=== PATIENT | male | born 1965 | race Caucasian/White ===

== ENCOUNTER 2018-02-08 12:04 | Emergency (ER) | payer BC ==
[2018-02-08 12:36] VITALS: RESP 18
--- NOTE | 2018-02-08 13:53 | ED ---
General Adult HPI - General Chief complaint: Extremity Problem,Nontraumatic Stated complaint: Hip Pain Time Seen by Provider: 02/08/18 13:09 Source: patient, RN notes reviewed, old records reviewed Mode of arrival: ambulatory Limitations: no limitations - History of Present Illness Initial comments: This is a 52-year-old male the ER for evaluation. Patient was essay for evaluation regards to leg pain. Severe left hip pain. Patient had prior x- rays for hip after fall. X-rays were negative. Patient continues to have severe hip pain. No other new injury or trauma no neurological deficit no loss of bowel or bladder - Related Data Previous Rx's Medication Instructions Recorded Ondansetron Odt [Zofran ODT] 4 mg PO Q8HR PRN #30 tab 02/08/18 diphenhydrAMINE [Benadryl] 25 mg PO TID #30 capsule 02/08/18 diphenhydrAMINE [Benadryl] 50 mg PO QID PRN #20 capsule 02/08/18 Allergies Allergy/AdvReac Type Severity Reaction Status Date / Time No Known Allergies Allergy Verified 02/08/18 12:36 Review of Systems ROS Statement: Those systems with pertinent positive or pertinent negative responses have been documented in the HPI. ROS Other: All systems not noted in ROS Statement are negative. 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 History of Any Multi-Drug Resistant Organisms: None Reported Past Surgical History: No Surgical Hx Reported Additional Past Surgical History / Comment(s): throat cancer Past Anesthesia/Blood Transfusion Reactions: Unable to Obtain Additional Past Anesthesia/Blood Transfusion Reaction / Comment(s): Pt states he has never had any surgeries. Past Psychological History: No Psychological Hx Reported Smoking Status: Current every day smoker Past Alcohol Use History: None Reported Past Drug Use History: None Reported - Past Family History Father Family Medical History: Cancer Additional Family Medical History / Comment(s): Father from bone cancer at the age of 52yrs. Mother Additional Family Medical History / Comment(s): Mother has back problems. General Exam Limitations: no limitations General appearance: alert, in no apparent distress Head exam: Present: atraumatic, normocephalic, normal inspection Eye exam: Present: normal appearance, PERRL, EOMI. Absent: scleral icterus, conjunctival injection, periorbital swelling ENT exam: Present: normal exam, mucous membranes moist Neck exam: Present: normal inspection. Absent: tenderness, meningismus, lymphadenopathy Respiratory exam: Present: normal lung sounds bilaterally. Absent: respiratory distress, wheezes, rales, rhonchi, stridor Cardiovascular Exam: Present: regular rate, normal rhythm, normal heart sounds. Absent: systolic murmur, diastolic murmur, rubs, gallop, clicks GI/Abdominal exam: Present: soft, normal bowel sounds. Absent: distended, tenderness, guarding, rebound, rigid Extremities exam: Present: normal inspection, full ROM, normal capillary refill. Absent: tenderness, pedal edema, joint swelling, calf tenderness Back exam: Present: normal inspection Neurological exam: Present: alert, oriented X3, CN II-XII intact Psychiatric exam: Present: normal affect, normal mood Skin exam: Present: warm, dry, intact, normal color. Absent: rash Course Vital Signs 02/08/18 02/08/18 12:33 14:32 Temperature 98.3 F Pulse Rate 96 67 Respiratory 18 18 Rate Blood Pressure 114/75 113/59 O2 Sat by Pulse 97 95 Oximetry EKG Findings - EKG Comments: EKG Findings:: EKG shows sinus rhythm rate of 67, DE 142, QRS 86, QTc 407 Medical Decision Making - Medical Decision Making 52 male the ER for evaluation presents to ER for evaluation regarding hip pain left hip pain. Patient is multiple imaging tests, abdomen abdomen tests. PAtient is in no distress and can be discharged home - Lab Data Result diagrams: 02/08/18 14:30 02/08/18 14:30 Lab Results 02/08/18 02/08/18 02/08/18 Range/Units 14:30 14:30 14:30 WBC 12.6 H (3.8-10.6) k/uL RBC 5.58 (4.30-5.90) m/uL Hgb 16.6 (13.0-17.5) gm/dL Hct 49.3 (39.0-53.0) % MCV 88.3 (80.0-100.0) fL MCH 29.7 (25.0-35.0) pg MCHC 33.6 (31.0-37.0) g/dL RDW 13.2 (11.5-15.5) % Plt Count 301 (150-450) k/uL Neutrophils % 78 % Lymphocytes % 12 % Monocytes % 7 % Eosinophils % 1 % Basophils % 0 % Neutrophils # 9.8 H (1.3-7.7) k/uL Lymphocytes # 1.6 (1.0-4.8) k/uL Monocytes # 0.8 (0-1.0) k/uL Eosinophils # 0.2 (0-0.7) k/uL Basophils # 0.1 (0-0.2) k/uL PT (9.0-12.0) sec INR (<1.2) APTT (22.0-30.0) sec D-Dimer (<0.60) mg/L FEU Sodium 140 (137-145) mmol/L Potassium 4.2 (3.5-5.1) mmol/L Chloride 109 H (98-107) mmol/L Carbon Dioxide 23 (22-30) mmol/L Anion Gap 8 mmol/L BUN 23 H (9-20) mg/dL Creatinine 0.70 (0.66-1.25) mg/dL Est GFR (CKD-EPI)AfAm >90 (>60 ml/min/1.73 sqM) Est GFR (CKD-EPI)NonAf >90 (>60 ml/min/1.73 sqM) Glucose 114 H (74-99) mg/dL Plasma Lactic Acid Austin (0.7-2.0) mmol/L Calcium 9.9 (8.4-10.2) mg/dL Phosphorus 3.0 (2.5-4.5) mg/dL Magnesium 2.0 (1.6-2.3) mg/dL Total Bilirubin 0.6 (0.2-1.3) mg/dL AST 18 (17-59) U/L ALT 24 (21-72) U/L Alkaline Phosphatase 86 (38-126) U/L Total Creatine Kinase 60 (55-170) U/L CK-MB (CK-2) 0.5 (0.0-2.4) ng/mL CK-MB (CK-2) Rel Index 0.8 Troponin I <0.012 (0.000-0.034) ng/mL Total Protein 7.1 (6.3-8.2) g/dL Albumin 4.3 (3.5-5.0) g/dL TSH 0.733 (0.465-4.680) mIU/L 02/08/18 02/08/18 Range/Units 14:30 14:30 WBC (3.8-10.6) k/uL RBC (4.30-5.90) m/uL Hgb (13.0-17.5) gm/dL Hct (39.0-53.0) % MCV (80.0-100.0) fL MCH (25.0-35.0) pg MCHC (31.0-37.0) g/dL RDW (11.5-15.5) % Plt Count (150-450) k/uL Neutrophils % % Lymphocytes % % Monocytes % % Eosinophils % % Basophils % % Neutrophils # (1.3-7.7) k/uL Lymphocytes # (1.0-4.8) k/uL Monocytes # (0-1.0) k/uL Eosinophils # (0-0.7) k/uL Basophils # (0-0.2) k/uL PT 11.1 (9.0-12.0) sec INR 1.2 H (<1.2) APTT 23.1 (22.0-30.0) sec D-Dimer 0.40 (<0.60) mg/L FEU Sodium (137-145) mmol/L Potassium (3.5-5.1) mmol/L Chloride (98-107) mmol/L Carbon Dioxide (22-30) mmol/L Anion Gap mmol/L BUN (9-20) mg/dL Creatinine (0.66-1.25) mg/dL Est GFR (CKD-EPI)AfAm (>60 ml/min/1.73 sqM) Est GFR (CKD-EPI)NonAf (>60 ml/min/1.73 sqM) Glucose (74-99) mg/dL Plasma Lactic Acid Austin 1.2 (0.7-2.0) mmol/L Calcium (8.4-10.2) mg/dL Phosphorus (2.5-4.5) mg/dL Magnesium (1.6-2.3) mg/dL Total Bilirubin (0.2-1.3) mg/dL AST (17-59) U/L ALT (21-72) U/L Alkaline Phosphatase (38-126) U/L Total Creatine Kinase (55-170) U/L CK-MB (CK-2) (0.0-2.4) ng/mL CK-MB (CK-2) Rel Index Troponin I (0.000-0.034) ng/mL Total Protein (6.3-8.2) g/dL Albumin (3.5-5.0) g/dL TSH (0.465-4.680) mIU/L Disposition Clinical Impression: Left hip pain Disposition: HOME SELF-CARE Condition: Good Instructions: Hip Pain (ED) Prescriptions: diphenhydrAMINE [Benadryl] 50 mg PO QID PRN #20 capsule PRN Reason: itching/rash diphenhydrAMINE [Benadryl] 25 mg PO TID #30 capsule Ondansetron Odt [Zofran ODT] 4 mg PO Q8HR PRN #30 tab PRN Reason: nausea/vomiting Is patient prescribed a controlled substance at d/c from ED?: No Referrals: Gus Ruby MD [Primary Care Provider] - 1-2 days
--- NOTE | 2018-02-08 13:57 | CT ---
EXAMINATION TYPE: CT hip LT wo con DATE OF EXAM: 02/08/2018 COMPARISON: None. HISTORY: Severe Lt hip pain, no injury CT DLP: 342.7 mGycm Automated exposure control for dose reduction was used. FINDINGS: Soft tissue views are unremarkable. There is no osseous lesion including fracture, dislocation and other osseous lesions. There is minima l degenerative change in the hip. IMPRESSION: 1. NO ACUTE OSSEOUS LESION. 2. MINIMAL DEGENERATIVE CHANGE.
[2018-02-08] MEDS ORDERED: MORPHINE SULFATE 4 MG/ML SYRINGE IV STA (14:02)
[2018-02-08] MEDS ORDERED: SODIUM CHLORIDE 0.9% 1,000 ML IV STA (14:02)
[2018-02-08] MEDS ORDERED: ONDANSETRON 4 MG/2 ML VIAL IVP STA (14:02)
[2018-02-08 14:55] LABS: Basophils # (A) 0.1 k/uL (0-0.2); Basophils % (A) 0 %; Eosinophils # (A) 0.2 k/uL (0-0.7); Eosinophils % (A) 1 %; HCT 49.3 % (39.0-53.0); HGB 16.6 gm/dL (13.0-17.5); Lymphocytes # (A) 1.6 k/uL (1.0-4.8); Lymphocytes % (A) 12 %; MCH 29.7 pg (25.0-35.0); MCHC 33.6 g/dL (31.0-37.0); MCV 88.3 fL (80.0-100.0); Mean Platelet Volume 7.1; Monocytes # (A) 0.8 k/uL (0-1.0); Monocytes % (A) 7 %; Neutrophils # (A) 9.8 k/uL (1.3-7.7); Neutrophils % (A) 78 %; Platelet Count 301 k/uL (150-450); RBC 5.58 m/uL (4.30-5.90); RDW 13.2 % (11.5-15.5); WBC 12.6 k/uL (3.8-10.6)
[2018-02-08] MEDS ORDERED: MORPHINE SULFATE 4 MG/ML SYRINGE IVP STA (15:10)
[2018-02-08 15:12] LABS: ALT 24 U/L (21-72); AST 18 U/L (17-59); Albumin 4.3 g/dL (3.5-5.0); Alkaline Phosphatase 86 U/L (38-126); Anion Gap 8 mmol/L; Blood Urea Nitrogen 23 mg/dL (9-20); Calcium 9.9 mg/dL (8.4-10.2); Carbon Dioxide 23 mmol/L (22-30); Chloride 109 mmol/L (98-107); Glucose 114 mg/dL (74-99); Potassium 4.2 mmol/L (3.5-5.1); Sodium 140 mmol/L (137-145); Total Bilirubin 0.6 mg/dL (0.2-1.3); Total Protein 7.1 g/dL (6.3-8.2)
[2018-02-08 15:16] LABS: D-Dimer 0.4 mg/L FEU (<0.60); INR 1.2 (<1.2); Partial Thromboplastin Time 23.1 sec (22.0-30.0); Prothrombin Time 11.1 sec (9.0-12.0)
[2018-02-08 15:29] LABS: Creatine Kinase 60 U/L (55-170)
[2018-02-08 15:43] LABS: Creatine Kinase MB 0.5 ng/mL (0.0-2.4); Troponin I <0.012 ng/mL (0.000-0.034)
--- NOTE | 2018-02-08 15:45 | CT ---
EXAMINATION TYPE: CT abdomen pelvis w con DATE OF EXAM: 02/08/2018 COMPARISON: No prior study available in the PACS system. HISTORY: Patient complains of LLQ pain, nausea, and vomiting. CT DLP: 472.6 mGycm Automated exposure control for dose reduction was used. TECHNIQUE: Helical acquisition of images was performed from the lung bases through the pelvis. CONTRAST: Performed without Oral Contrast and with IV Contrast, patient injected with 100 mL of Isovue 300. FINDINGS: LUNG BASES: Increased density in both posterior lung bases and costophrenic sulcus more prominent on the right side consistent with atelectatic changes or limited infiltrate. No pleural or pericardial e ffusion. LIVER/GB: No significant abnormality is appreciated. No cholelithiasis or distinctions of the intrahe patic biliary radicles. PANCREAS: No significant abnormality is seen. SPLEEN: No significant abnormality is seen. ADRENALS: No significant abnormality is seen. KIDNEYS: No significant abnormality is seen. Satisfactory excretion of contrast material through both kidneys without hydronephrosis. Benign appearing renal cortical cysts within the medial portion of t he right kidney measuring 1.4 cm in diameter and visible on axial image labeled #23. FREE AIR: No free air is visualized. RETROPERITONEAL ADENOPATHY: None visualized REPRODUCTIVE ORGANS: No significant abnormality is seen URINARY BLADDER: No significant abnormality is seen. PELVIC ADENOPATHY: None visualized. OSSEOUS STRUCTURES: No significant abnormality is seen. BOWEL: No free air or bowel obstruction. Appendix is not visible. No abnormal attenuation of the jeffrey cecal fat. Mild thickening of the mucosa of the descending colon and sigmoid region without abnormal pericolonic fat. No abscess formation. Cannot exclude colitis. OTHER: IMPRESSION: INCREASED DENSITY AT THE LUNG BASES MORE PROMINENT ON THE RIGHT COSTOPHRENIC SULCUS SUGGESTIVE OF ATE LECTATIC CHANGES OR LIMITED INFILTRATE. NO FREE AIR OR BOWEL OBSTRUCTION. NO DISTENTION OF THE INTRAHEPATIC BILIARY RADICLES. SATISFACTORY EXCRETION OF CONTRAST MATERIAL THROUGH BOTH KIDNEYS. MINIMAL THICKENING OF THE MUCOSA OF THE DESCENDING COLON AND SIGMOID REGION. CANNOT EXCLUDE COLITIS. NO EVIDENCE OF ABSCESS FORMATION OR ABNORMAL APPELLATION OF THE PERICOLONIC FAT.
[2018-02-08 16:07] VITALS: BP 111/65; PULSE 72; TEMP 98
== END 2018-02-08 16:07 | disposition home or self-care (01) ==
LOC: EC 12:04
DX: M25.552 Pain in left hip (principal); F17.200 Nicotine dependence, unspecified, uncomplicated; Z85.818 Personal history of malignant neoplasm of other sites of lip, oral cavity, and pharynx
CPT/HCPCS: 36415; 93005; 85379; 80053; 82550; 82553; 83605; 83735; 84100; 84443; 84484; 85025; 85610; 85730; 74177; 73700; 99284; 96374; 96375; 96376; 96361; J2270; J2405; Q9967

== ENCOUNTER → 2018-03-01 | Outpatient (CLI) | payer BC ==
--- NOTE | 2018-03-02 11:28 | MR ---
EXAMINATION TYPE: MR lumbar spine wo/w con DATE OF EXAM: 03/01/2018 COMPARISON: None HISTORY: Back and abdomen pain CONTRAST: 7 mL intravenous Gadavist. TECHNIQUE: Multiplanar, multisequence images of the lumbar spine were acquired. FINDINGS: Cord terminates at the L1 level. L5-S1: No significant disc bulge or disc herniation. No spinal canal stenosis. No foraminal stenosi s. L4-L5: No significant disc bulge or disc herniation. No spinal canal stenosis. No foraminal stenosi s. There is some mild facet hypertrophy present. L3-L4: No significant disc bulge or disc herniation. No spinal canal stenosis. No foraminal stenosi s. Neural foramen are patent.. L2-L3: No significant disc bulge or disc herniation. No spinal canal stenosis. No foraminal stenosi s. Neural foramen are patent.. L1-L2: No significant disc bulge or disc herniation. No spinal canal stenosis. No foraminal stenosi s. Neural foramen are patent.. T12-L1: No significant disc bulge or disc herniation. No spinal canal stenosis. No foraminal stenos is. Neural foramen are patent.. No abnormal enhancement. A partially visualized posterior medial right renal cyst may be present. Thi s could be confirmed with ultrasound. This was present on the CT examination of 02/08/2018. IMPRESSION: 1. No suspicious acute changes lumbar spine. 2. No significant disc bulging or disc herniations.
--- NOTE | 2018-03-03 10:15 | MR ---
EXAMINATION TYPE: MR hip LT wo con DATE OF EXAM: 03/01/2018 COMPARISON: 02/08/2018 HISTORY: Left hip pain Standard multiplanar, multisequence MRI departmental protocol TECHNIQUE: Multiplanar, multisequence images of the left hip were acquired. Diffusion weighted imagin g was performed. FINDINGS: The femoral heads maintain their normal rounded contour. No evidence of avascular necrosis. There is no subchondral collapse. No bone marrow edema. No acute fracture or dislocation is seen. Overall the bone marrow signal is within normal limits. The gluteal musculature and hip girdle musculature is sym metric and unremarkable in signal and muscular volume. There is mild bilateral femoral acetabular art hropathy that is overall symmetric with cephalad joint space narrowing and acetabular roof sclerosis. No cam deformity is identified. Labrum is intact within the limitation of this nonarthrographic stud y. No pelvic adenopathy is identified. No dilated bowel. 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 No evidence of suspicious osseous le debra, subchondral collapse, avascular necrosis, or bone marrow edema. No evidence of acute fracture o r dislocation.
== END | disposition home or self-care (01) ==
LOC: RADMRIMAIN 09:21
PROVIDERS: ATTEND Family Medicine
DX: M16.12 Unilateral primary osteoarthritis, left hip (principal); M47.27 Other spondylosis with radiculopathy, lumbosacral region
CPT/HCPCS: 72158; 73721; A9581

== ENCOUNTER → 2020-07-08 | Outpatient (CLI) | payer BC ==
--- NOTE | 2020-07-08 07:25 | MR ---
EXAMINATION TYPE: MR lumbar spine wo con DATE OF EXAM: 07/08/2020 COMPARISON: MRI lumbar spine March 01, 2018 HISTORY: Low back pain into left hip for 5 weeks TECHNIQUE: Multiplanar, multisequence imaging of the lumbar spine is performed without IV contrast. FINDINGS: Sagittal images of the lumbar spine show vertebral body heights and alignment to remain sat isfactory. Multilevel disc desiccation redemonstrated. There is mild multilevel disc space narrowing. [id number] multilevel anterior spurring. The conus medullaris remains normal in position and s ignal ending mid L1 level. The bone marrow signal intensity is within normal limits. Axial images at T12-L1 level redemonstrate mild facet arthropathy bilaterally. Axial images at L1-L2 and L2-L3 levels remain within normal limits. Axial images at L3-L4 level show new mild broad disc bulge and mild facet arthropathy bilaterally, th ere is mild effacement of the anterior thecal sac. There is mild bilateral anterior inferior neural f oraminal narrowing. Findings new from prior. Axial images at the L4-L5 level show mild to moderate broad-based disc protrusion and [id number] e facet arthropathy bilaterally. There is mild effacement anterior thecal sac. There is mild bilatera l anterior inferior neural foraminal narrowing. Axial images at L5-S1 level show mild/moderate facet nephropathy bilaterally. There is focal central disc protrusion without spinal canal is preserved as there is increased epidural fat at this level. T here is additional left foraminal disc protrusion seen best sagittal image 4 causing asymmetric moder ate left-sided anterior inferior neural foraminal narrowing and encroaching along the anterior-inferi or margin of the exiting L5 nerve on sagittal images 3 and 4 correlating with axial image 3. In retro spect this was present on prior study. Paraspinal muscle bulk is preserved. A 5 mm T2 hyperintense lesion posterior medial aspect left kidne y axial image 21 is presumed benign. IMPRESSION: [id number] multilevel degenerative changes as detailed above. Attention to the L5-S 1 level where foraminal disc protrusion encroaches on the exiting left L5 nerve and may account for p atient's left hip radiculopathy type symptoms.
== END | disposition home or self-care (01) ==
LOC: RADMRIMAIN 06:40
PROVIDERS: ATTEND Orthopaedic Surgery
DX: M51.26 Other intervertebral disc displacement, lumbar region (principal); M51.27 Other intervertebral disc displacement, lumbosacral region; M47.816 Spondylosis without myelopathy or radiculopathy, lumbar region
CPT/HCPCS: 72148

== ENCOUNTER → 2021-06-13 | Outpatient (CLI) | payer BC ==
--- NOTE | 2021-06-13 13:36 | CT ---
EXAMINATION TYPE: CT abdomen pelvis wo/w con DATE OF EXAM: 06/13/2021 COMPARISON: Prior CT February 08, 2018 HISTORY: Right sided abdominal/flank pain CT DLP: 1943 mGycm, Automated Exposure Control for Dose Reduction was Utilized. CONTRAST: CT scan of the abdomen and pelvis is performed with oral and without and with IV Contrast, patient in jected with 100 mL of Isovue 300. FINDINGS: LUNG BASES: No significant abnormality is appreciated. LIVER/GB: No significant abnormality is appreciated. PANCREAS: No significant abnormality is seen. SPLEEN: No significant abnormality is seen. ADRENALS: No significant abnormality is seen. KIDNEYS: No renal calculi on noncontrast CT. Postcontrast images show symmetric cortical medullary u ptake and excretion without hydronephrosis seen bilaterally. Partially exophytic 2.1 cm thin-walled c yst posteriorly right kidney image 22 series 10 redemonstrated slightly larger. Occasional subcentime ter low dense lesion central left kidney too small to further characterize presumed benign. No intral uminal calculus in bladder. BOWEL: Oral contrast reaches the rectum. No suspicious small or large bowel dilation. Normal contrast -filled appendix from cecum. PROSTATE/SEMINAL VESICLES: Enlarged prostate consistent with BPH. LYMPH NODES: No greater than 1cm abdominal or pelvic lymph nodes are appreciated. OSSEOUS STRUCTURES: Fmeq-[id number] multilevel spurring and disc space narrowing throughout the thor acolumbar spine. OTHER: Mild calcified plaque of the aorta extends into branch vessels. Stable small fat-containing um bilical hernia IMPRESSION: No renal stones or hydronephrosis seen bilaterally. No acute findings evident on current study.
== END | disposition home or self-care (01) ==
LOC: RADCTMAIN 11:13
PROVIDERS: ATTEND Family Medicine
DX: R10.9 Unspecified abdominal pain (principal)
CPT/HCPCS: 74178; Q9967